=== PATIENT | male | born 1980 | race Caucasian/White ===

== ENCOUNTER 2017-02-24 18:41 | Emergency (ER) | payer MEDICAID ==
[2017-02-24 19:10] LABS: EOSINOPHILS # (AUTO) 0.2 /CMM (0.0-0.7); EOSINOPHILS % (AUTO) 1.7 % (0.0-6.0); LYMPHOCYTES # (AUTO) 2.7 /CMM (0.8-4.8); MEAN CORPUSCULAR VOLUME 94 fL (80-96); WHITE BLOOD COUNT (AUTO) 11.9 K/uL (4.3-11.0)
--- NOTE | 2017-02-24 19:15 | NUR ---
PT RESTING IN GURNEY. NO SIGNS OF DISTRESS NOTED. PT VITAL SIGNS STABLE. PT DENIES CHESTPAIN OR SOB. BREATHS EQUAL AND UNLABORED. 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 WILL CONT TO MONITOR PT.
[2017-02-24 19:16] LABS: BASOPHILS # (AUTO) 0.1 /CMM (0.0-0.2); HEMATOCRIT 48 % (39-51); HEMOGLOBIN 16.4 g/dL (13.5-17.5); LYMPHOCYTES % (AUTO) 22.9 % (20.0-44.0); MEAN CORPUSCULAR HEMOGLOBIN 32 PG (26.0-33.0); MEAN CORPUSCULAR HGB CONC 34 g/dl (31.0-36.0); MONOCYTES # (AUTO) 0.6 /CMM (0.1-1.30); MONOCYTES % (AUTO) 5.1 % (2.0-12.0); NEUTROPHILS # (AUTO) 8.3 /CMM (1.8-8.9); NEUTROPHILS % (AUTO) 69.3 % (43.0-81.0); PLATELET COUNT (AUTO) 252 /CMM (150-450); RDW COEFFICIENT OF VARIATION 12.9 (11.5-15.0); RED BLOOD CELL COUNT(AUTO) 5.13 MIL/uL (4.5-6.0)
[2017-02-24 19:19] LABS: CALCIUM, SERUM 9.2 mg/dL (8.5-10.1); CARBON DIOXIDE 23 mmol/L (21-32); CHLORIDE 104 mmol/L (98-107); CREATININE 0.9 mg/dL (0.6-1.3); GLUCOSE 97 mg/dL (74-106); POTASSIUM 3.4 mmol/L (3.5-5.1); SODIUM SERUM 141 mmol/L (136-145); UREA NITROGEN, BLOOD 21 mg/dL (7-18)
[2017-02-24 19:24] LABS: INR 0.93 (0.87-1.13); PROTHROMBIN TIME 9.7 SECS (9.5-12.7)
[2017-02-24 19:29] LABS: TROPONIN I < 0.017 ng/mL (0.00-0.056)
--- NOTE | 2017-02-24 20:29 | NUR ---
PT OK TO DISCHARGE PER DR VORA. IV removed. Catheter intact and site benign. Pressure and 4x4 applied to site. No bleeding noted.Patient discharged to home in stable condition. Written and verbal after care instructions given. Patient verbalizes understanding of instruction.Patient is awake and alert to self, day, and place. PT ambulatory with a steady gait
[2017-02-24 20:34] VITALS: BP 141/79
== END 2017-02-24 20:50 | disposition home or self-care (01) ==
LOC: ER 18:43
DX: I47.1 Supraventricular tachycardia (principal); F41.9 Anxiety disorder, unspecified; R79.1 Abnormal coagulation profile; F17.210 Nicotine dependence, cigarettes, uncomplicated
CPT/HCPCS: 36415; 71010-TC; 80048-TC; 84443-TC; 84484-TC; 85025-TC; 85730-TC

== ENCOUNTER 2017-08-13 07:28 | Emergency (ER) | payer MEDICAID, OTHER ==
[~2017-08-13] VITALS: Ht 190.5 cm; Wt 143.6 kg
--- NOTE | 2017-08-13 07:34 | NUR ---
PT BIB [facility] TO ER BED 8 WITH COMPLAINTS OF RAPID HEART RATE AT HOME. PT ASSOCIATES EPISODES OF RAPID HEART RATE WITH CONSUMPTION OF ALCOHOL, WHICH OCURRED LAST NIGHT. PT STATES THAT HE HAS A HISTORY OF SVT, AND EPISODES HAVE BEEN OCCURING MORE FREQUENTLY OVER THE PAST FEW MONTHS. HE DOES HAVE AN EPS STUDY SCHEDULED IN THREE WEEKS WITH COMMERCIAL ASSISTANT DR INFANTE.. PT DENIES ANY CHEST PAIN OR SOB. PT PLACED ON MONITOR, VS. STABLE, HR NSR, RATE OF 65. PT IS WARM TO TOUCH, NON DIAPHRETIC, NON TACHYCARDIC, BREATHING EQUAL AND UNLABORED. NO ACUTE S/S OF DISTRESS NOTED AT THIS TIME. PT UPDATED WITH PLAN OF CARE, PT AGREEABLE WITH PLAN.
[2017-08-13] MEDS ORDERED: ASPIRIN 81 MG TAB.CHEW ONE (07:53)
[2017-08-13 07:57] LABS: BASOPHILS # (AUTO) 0.2 /CMM (0.0-0.2); BASOPHILS % (AUTO) 2.3 % (0.0-2.0); EOSINOPHILS % (AUTO) 2.4 % (0.0-6.0); HEMATOCRIT 48 % (39-51); HEMOGLOBIN 16.5 g/dL (13.5-17.5); LYMPHOCYTES # (AUTO) 2.2 /CMM (0.8-4.8); LYMPHOCYTES % (AUTO) 24.5 % (20.0-44.0); MEAN CORPUSCULAR HGB CONC 35 g/dl (31.0-36.0); MEAN CORPUSCULAR VOLUME 92 fL (80-96); MONOCYTES # (AUTO) 0.6 /CMM (0.1-1.30); MONOCYTES % (AUTO) 6.3 % (2.0-12.0); NEUTROPHILS # (AUTO) 5.9 /CMM (1.8-8.9); NEUTROPHILS % (AUTO) 64.5 % (43.0-81.0); PLATELET COUNT (AUTO) 241 /CMM (150-450); RDW COEFFICIENT OF VARIATION 12.6 (11.5-15.0); RED BLOOD CELL COUNT(AUTO) 5.18 MIL/uL (4.5-6.0); WHITE BLOOD COUNT (AUTO) 9.1 K/uL (4.3-11.0)
[2017-08-13] MEDS ORDERED: IV NS 0.9% 1,000 ML BAG IV ONE (08:00)
[2017-08-13] MEDS ORDERED: ASPIRIN 81 MG TAB.CHEW PO ONE (08:00)
[2017-08-13 08:20] LABS: CALCIUM, SERUM 9.4 mg/dL (8.5-10.1); CARBON DIOXIDE 23 mmol/L (21-32); CHLORIDE 104 mmol/L (98-107); CREATININE 0.9 mg/dL (0.6-1.3); GLUCOSE 87 mg/dL (74-106); POTASSIUM 3.7 mmol/L (3.5-5.1); SODIUM SERUM 139 mmol/L (136-145); UREA NITROGEN, BLOOD 16 mg/dL (7-18)
[2017-08-13 08:22] LABS: INR 0.94 (0.87-1.13)
[2017-08-13 08:24] LABS: TROPONIN I < 0.017 ng/mL (0.00-0.056)
[2017-08-13 08:33] LABS: ALANINE AMINOTRANSFERASE 87 U/L (12-78); ALBUMIN 4.3 g/dL (3.4-5.0); ALKALINE PHOSPHATASE 70 U/L (46-116); ASPARTATE AMINOTRANSFERASE 29 U/L (15-37); BILIRUBIN,DIRECT 0.1 mg/dL (0.0-0.2); BILIRUBIN,TOTAL 0.5 mg/dL (0.2-1.0)
--- NOTE | 2017-08-13 09:07 | NUR ---
Paged Dr Sandoval Carrasco (coronary care unit nurse). contact info: . Dr Carline Gloria is gas pumping station helper for Dr Carrasco.
--- NOTE | 2017-08-13 09:12 | NUR ---
Dr Velazquez is talking to Dr Gloria on the phone.
[2017-08-13 09:46] VITALS: BP 124/74
--- NOTE | 2017-08-13 09:52 | NUR ---
Patient discharged to home in stable condition. Written and verbal after care instructions given. Patient verbalizes understanding of instruction.IV removed. Catheter intact and site benign. Pressure and 4x4 applied to site. No bleeding noted. VSS UPON DISCHARGE
== END 2017-08-13 09:47 | disposition home or self-care (01) ==
LOC: ER 07:29
DX: I47.1 Supraventricular tachycardia (principal); F41.9 Anxiety disorder, unspecified; F10.10 Alcohol abuse, uncomplicated; F17.200 Nicotine dependence, unspecified, uncomplicated; Z79.82 Long term (current) use of aspirin; Z60.2 Problems related to living alone
CPT/HCPCS: 36415; 71045; 80048; 80076; 84484; 85025; 85730; 93005; 96360; 99285; A4606; J7030; Z7610

== ENCOUNTER 2017-09-08 16:11 | Emergency (ER) | payer MEDICAID, OTHER ==
[~2017-09-08] VITALS: Ht 190.5 cm; Wt 142.9 kg
--- NOTE | 2017-09-08 16:15 | NUR ---
AAOX3, came to ER c/o epigastric discomfort x 4 days, denies n/v and sob. Skin is warm and dry. Patient has hx of SVT. EKG in progress at BS. Placed on hospital gown and monitor. Awaiting MD for eval.
--- NOTE | 2017-09-08 16:22 | NUR ---
Dr Shankar at BS for eval.
[2017-09-08 16:34] LABS: BASOPHILS # (AUTO) 0.2 /CMM (0.0-0.2); BASOPHILS % (AUTO) 1.8 % (0.0-2.0); EOSINOPHILS % (AUTO) 1.5 % (0.0-6.0); HEMATOCRIT 45 % (39-51); HEMOGLOBIN 15.5 g/dL (13.5-17.5); LYMPHOCYTES # (AUTO) 2.4 /CMM (0.8-4.8); LYMPHOCYTES % (AUTO) 19.7 % (20.0-44.0); MEAN CORPUSCULAR HGB CONC 35 g/dl (31.0-36.0); MEAN CORPUSCULAR VOLUME 91 fL (80-96); MONOCYTES # (AUTO) 0.7 /CMM (0.1-1.30); MONOCYTES % (AUTO) 6.2 % (2.0-12.0); NEUTROPHILS # (AUTO) 8.6 /CMM (1.8-8.9); NEUTROPHILS % (AUTO) 70.8 % (43.0-81.0); PLATELET COUNT (AUTO) 253 /CMM (150-450); RDW COEFFICIENT OF VARIATION 12.4 (11.5-15.0); WHITE BLOOD COUNT (AUTO) 12.1 K/uL (4.3-11.0)
[2017-09-08 16:44] LABS: CALCIUM, SERUM 9.3 mg/dL (8.5-10.1); CARBON DIOXIDE 27 mmol/L (21-32); CHLORIDE 103 mmol/L (98-107); CREATININE 0.9 mg/dL (0.6-1.3); GLUCOSE 91 mg/dL (74-106); POTASSIUM 4.1 mmol/L (3.5-5.1); SODIUM SERUM 139 mmol/L (136-145); UREA NITROGEN, BLOOD 13 mg/dL (7-18)
[2017-09-08 16:48] LABS: INR 0.97 (0.85-1.15)
[2017-09-08 16:52] LABS: TROPONIN I < 0.017 ng/mL (0.00-0.056)
--- NOTE | 2017-09-08 17:33 | NUR ---
Patient discharged to home in stable condition. Written and verbal after care instructions given. Patient verbalizes understanding of instruction.
--- NOTE | 2017-09-08 17:33 | NUR ---
IV removed. Catheter intact and site benign. Pressure and 4x4 applied to site. No bleeding noted.
[2017-09-08 17:34] VITALS: BP 138/77
== END 2017-09-08 17:39 | disposition home or self-care (01) ==
LOC: ER 16:15
DX: R00.2 Palpitations (principal); F41.9 Anxiety disorder, unspecified; I47.1 Supraventricular tachycardia; F17.200 Nicotine dependence, unspecified, uncomplicated; Z60.2 Problems related to living alone
CPT/HCPCS: 36415; 71045; 80048; 84484; 85025; 85730; 93005; 99285; 99406; A4606; Z7610

== ENCOUNTER 2017-10-07 07:22 | Emergency (ER) | payer OTHER ==
[~2017-10-07] VITALS: Ht 175.3 cm; Wt 95.3 kg
--- NOTE | 2017-10-07 07:38 | NUR ---
PT CONVERTED TO NSR DURING VAGAL MANEUVER AND REFUSED TO BE SEEN BY ED PHYSICIAN. PT ELOPED FROM ED
[2017-10-07 07:39] VITALS: BP 134/82
--- NOTE | 2017-10-07 07:40 | NUR ---
Patient eloped from facility. ER MD notified.
== END 2017-10-07 07:40 | disposition left against medical advice (07) ==
LOC: ER 07:23
DX: R00.0 Tachycardia, unspecified (principal); F41.9 Anxiety disorder, unspecified; Z53.21 Procedure and treatment not carried out due to patient leaving prior to being seen by health care provider
CPT/HCPCS: A4606; Z7610

== ENCOUNTER 2017-10-25 09:12 | Emergency (ER) | payer MEDICAID, OTHER ==
[~2017-10-25] VITALS: Ht 190.5 cm; Wt 140.6 kg
--- NOTE | 2017-10-25 09:15 | NUR ---
BIBRA 88 FOR SVT, ADENOSINE 6, 6, 12MG GIVEN IN FIELD, CONVERTED TO SINUS RHYTHM PRIOR TO ARRIVAL. PATIENT A/OX 4 AT THIS TIME, BREATHING EVEN AND UNLABORED. DENIES CHEST PAIN. NO SOB, NAD, VITALS STABLE. SAFETY AND COMFORT MEASURES IN PLACE. IV ON LEFT HAND, 18G HADOOP INFRASTRUCTURE ARCHITECT. MD AT BEDSIDE FOR EVAL. Addendum: 10/25/17 at 0919 by ZULEIKA CORRECTION: PATIENT RECEIVED 6, 12, 12 MG OF ADENOSINE
[2017-10-25] MEDS ORDERED: IV NS 0.9% 1,000 ML BAG IV ONE (09:30)
[2017-10-25 09:44] LABS: BASOPHILS % (AUTO) 0.5 % (0.0-2.0); EOSINOPHILS % (AUTO) 0.8 % (0.0-6.0); HEMATOCRIT 47 % (39-51); LYMPHOCYTES # (AUTO) 1.9 /CMM (0.8-4.8); LYMPHOCYTES % (AUTO) 24.4 % (20.0-44.0); MEAN CORPUSCULAR HEMOGLOBIN 33 PG (26.0-33.0); MEAN CORPUSCULAR HGB CONC 34 g/dl (31.0-36.0); MEAN CORPUSCULAR VOLUME 95 fL (80-96); MONOCYTES # (AUTO) 0.5 /CMM (0.1-1.30); MONOCYTES % (AUTO) 6.4 % (2.0-12.0); NEUTROPHILS # (AUTO) 5.4 /CMM (1.8-8.9); NEUTROPHILS % (AUTO) 67.9 % (43.0-81.0); PLATELET COUNT (AUTO) 216 /CMM (150-450); RDW COEFFICIENT OF VARIATION 14.4 (11.5-15.0); RED BLOOD CELL COUNT(AUTO) 4.92 MIL/uL (4.5-6.0); WHITE BLOOD COUNT (AUTO) 7.9 K/uL (4.3-11.0)
[2017-10-25 09:50] LABS: CALCIUM, SERUM 9.8 mg/dL (8.5-10.1); CARBON DIOXIDE 23 mmol/L (21-32); CHLORIDE 102 mmol/L (98-107); GLUCOSE 112 mg/dL (74-106); POTASSIUM 3.6 mmol/L (3.5-5.1); SODIUM SERUM 138 mmol/L (136-145); UREA NITROGEN, BLOOD 9 mg/dL (7-18)
[2017-10-25 09:52] LABS: TROPONIN I < 0.017 ng/mL (0.00-0.056)
[2017-10-25 10:29] LABS: MAGNESIUM 1.7 mg/dL (1.8-2.4)
[2017-10-25] MEDS ORDERED: Magnesium 1GM/D5W 100ML PREMIX 100 ML IV ONE ×3 (10:47→11:00)
[2017-10-25] MEDS ORDERED: POTASSIUM CHLORIDE 20 MEQ TAB.PRT.SR PO ONE ×2 (10:47→11:00)
--- NOTE | 2017-10-25 11:03 | NUR ---
PER DR. VORA, ADMINISTER 2 BAGS MAGNESIUM OVER 30 MINUTES.
[2017-10-25 11:33] VITALS: BP 124/77
--- NOTE | 2017-10-25 11:34 | NUR ---
IV removed. Catheter intact and site benign. Pressure and 4x4 applied to site. No bleeding noted. Patient discharged to home in stable condition. Written and verbal after care instructions given. Patient verbalizes understanding of instruction.
== END 2017-10-25 11:33 | disposition home or self-care (01) ==
LOC: ER 09:14
DX: I47.1 Supraventricular tachycardia (principal); F41.9 Anxiety disorder, unspecified; F17.200 Nicotine dependence, unspecified, uncomplicated; Z60.2 Problems related to living alone
CPT/HCPCS: 36415; 71045-TC; 80048-TC; 83735-TC; 84100-TC; 84484-TC; 85025-TC; 85730-TC; A4606; J3475; J7030; Z7610